=== PATIENT | male | born 1985 | race Two or more races ===

== ENCOUNTER 2017-06-15 15:01 | Emergency (ER) | payer OTHER ==
[~2017-06-15] VITALS: Ht 167.6 cm; Wt 63.5 kg
[2017-06-15 15:05] VITALS: BP 120/70
[2017-06-15] MEDS ORDERED: LIDOCAINE 1%-EPI 1:100,000 50 ML VIAL IJ ONE ×2 (15:21→15:30)
== END 2017-06-15 16:19 | disposition home or self-care (01) ==
LOC: ER 15:07
DX: L05.01 Pilonidal cyst with abscess (principal); F12.90 Cannabis use, unspecified, uncomplicated; F17.200 Nicotine dependence, unspecified, uncomplicated
CPT/HCPCS: 10080; 99284; A4606; A6402; A6403; J3490; Z7610

== ENCOUNTER 2018-11-06 13:07 | Emergency (ER) | payer OTHER ==
[~2018-11-06] VITALS: Ht 170.2 cm; Wt 81.6 kg
[2018-11-06 13:15] VITALS: BP 116/73
[2018-11-06] MEDS ORDERED: FLUORESCEIN SODIUM OPHTH 1 EA STRIP OP ONE (13:30)
[2018-11-06] MEDS ORDERED: TETRACAINE HCL/PF 0.5% UD 2 ML BOTTLE RIGHTEYE ONE (13:30)
[2018-11-06] MEDS ORDERED: FLUORESCEIN SODIUM OPHTH 1 EA STRIP ONE (13:34)
[2018-11-06] MEDS ORDERED: TETRACAINE HCL/PF 0.5% UD 2 ML BOTTLE ONE (13:35)
== END 2018-11-06 14:46 | disposition home or self-care (01) ==
LOC: ER 13:10
DX: H57.11 Ocular pain, right eye (principal)
CPT/HCPCS: 99282; J7030